=== PATIENT | female | born 1950 | race Caucasian/White ===

== ENCOUNTER 2018-07-02 07:35 | Emergency (ER) | payer BC ==
[2018-07-02 07:39] VITALS: PULSE 82; TEMP 97; O2SAT 100
[2018-07-02 07:40] VITALS: BMI 20.1
[2018-07-02] MEDS ORDERED: Sodium Chloride 0.9% 1,000 ML IV STA (07:47)
--- NOTE | 2018-07-02 07:55 | ED PDOC ---
HPI: Headache Time Seen by Provider: 07/02/18 07:41 Chief Complaint (Nursing): Headache Chief Complaint (Provider): Headache History Per: Patient History/Exam Limitations: no limitations Onset/Duration Of Symptoms: Days (today 745am) Current Symptoms Are (Timing): Still Present Additional Complaint(s): Pt. with headache to the right head going down the right neck. Has had similar many times and is the same as her usual migraine. Took motrin 1 tab, tylenol 1 tab, and 1 relpax for the headache. Still present so came to the Er. Not the worst pain in her life. No numbness, tingles, weakness, chest pain, dyspnea, nausea, vomit, diarrhea, abd pain. No photophobia. Noises bother her. Past Medical History Reviewed: Nursing Documentation, Vital Signs Vital Signs: Last Vital Signs Temp 97 F L 07/02/18 07:38 Pulse 82 07/02/18 07:38 Resp BP 156/71 H 07/02/18 07:38 Pulse Ox 100 07/02/18 07:38 - Medical History PMH: Migraine - Surgical History Surgical History: No Surg Hx - Family History Family History: States: Unknown Family Hx - Allergies Allergies/Adverse Reactions: Allergies Allergy/AdvReac Type Severity Reaction Status Date / Time Sulfa (Sulfonamide Allergy RASH Verified 07/02/18 07:48 Antibiotics) Review of Systems ROS Statement: Except As Marked, All Systems Reviewed And Found Negative Constitutional: Negative for: Fever, Weakness Eyes: Negative for: Vision Change Neurological: Positive for: Headache. Negative for: Dizziness Physical Exam - Reviewed Nursing Documentation Reviewed: Yes Vital Signs Reviewed: Yes - Physical Exam Appears: Positive for: Non-toxic, No Acute Distress Head Exam: Positive for: ATRAUMATIC, NORMAL INSPECTION, NORMOCEPHALIC Skin: Positive for: Normal Color, Warm, DRY Eye Exam: Positive for: EOMI, Normal appearance, PERRL ENT: Positive for: Normal ENT Inspection. Negative for: Nasal Congestion, Pharyngeal Erythema Neck: Positive for: Normal, Painless ROM, Supple Cardiovascular/Chest: Positive for: Regular Rate, Rhythm Respiratory: Positive for: CNT, Normal Breath Sounds Gastrointestinal/Abdominal: Positive for: Normal Exam, Soft. Negative for: Tenderness Back: Positive for: Normal Inspection. Negative for: L CVA Tenderness, R CVA Tenderness Extremity: Positive for: Normal ROM. Negative for: Tenderness, Pedal Edema Neurologic/Psych: Positive for: Alert, log scaler II-XII, Oriented. Negative for: Motor/Sensory Deficits, Aphasia, Facial Droop - ECG O2 Sat by Pulse Oximetry: 100 Pulse Ox Interpretation: Normal - Progress ED Course And Treament: 927: Stable. AAOx3. Pain free. Tolerated PO. Fu with pcp. Disposition - Clinical Impression Clinical Impression: Headache - Patient ED Disposition Is Patient to be Admitted: No - Disposition Referrals: [facility] [Outside] - 07/06/18 Disposition: Routine/Home Disposition Time: 09:27 Condition: STABLE Additional Instructions: Return if not better in 3 days. Instructions: Headache, Adult Forms: [facility] ([place]ish), [facility] School/Work Excuse
[2018-07-02 10:09] VITALS: BP 111/58
== END 2018-07-02 10:08 | disposition home or self-care (01) ==
LOC: H.ER 07:35
DX: R51 Headache (principal)
CPT/HCPCS: 96360; 99285; J2765; J7030